=== PATIENT | male | born 1985 ===

== ENCOUNTER 2017-12-08 23:20 | Emergency (ER) | payer OTHER ==
[2017-12-08] MEDS ORDERED: Sodium Chloride 0.9% 1,000 ML IV ONE (23:31)
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
[2017-12-09 00:21] LABS: CHLORIDE,CL 106 mmol/L (98-107); SODIUM,NA 140 mmol/L (136-148)
[2017-12-09] MEDS ORDERED: Iopamidol 755 Mg/ML 100 ML Bottle IVPUSH STA (00:29)
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
== END 2017-12-09 02:27 ==
LOC: MW.ED 23:20
DX: F15.90 Other stimulant use, unspecified, uncomplicated (principal); Z88.0 Allergy status to penicillin; V89.2XXA Person injured in unspecified motor-vehicle accident, traffic, initial encounter
CPT/HCPCS: 36415; 70450; 71045; 71260; 72125; 72170; 74177; 80053; 80305; 81001; 85025; 85610; 86850; 86900; 86901; 93005; 96360; 99285; G0390; G0480; J7040; Q9967; 99283